=== PATIENT | female | born 1975 | race Caucasian/White ===

== ENCOUNTER → 2020-12-23 | Outpatient (CLI) | payer MEDICARE, OTHER ==
[~2020-12-23] MED LIST: AMLODIPINE BES2.5 MG PO; DITROPAN 5 MG TA5 MG PO; DOCUSATE SODIU250 MG PO; ENBREL50 MG/1 M1 SQ; ENBREL50 MG/1 ML INJ; FOLIC ACID 1 MG1 MG PO; FOLIC ACID1 MG PO; HYDROCODON-ACE1 EAC2 PO; HYDROCODON-ACE1 EAC4 PO; IBU800 MG PO; METHOTREXATE T2.5 MG PO; NORVASC2.5 MG PO; PREDNISONE10 MG PO; PROTONIX 40 MG40 M1 PO; PROTONIX40 MG PO; TRAMADOL HCL50 MG PO; ULTRAM50 MG PO; VENTOLIN HFA 66.7 GM INH; ZOFRAN4 MG PO
== END ==
LOC: EMI 13:00
DX: M25.762 Osteophyte, left knee (principal); M25.562 Pain in left knee; S83.242A Other tear of medial meniscus, current injury, left knee, initial encounter
CPT/HCPCS: 73721

== ENCOUNTER → 2021-03-05 | Day surgery (SDC) | payer MEDICARE, OTHER ==
[~2021-03-05] VITALS: Ht 157.5 cm; Wt 93.0 kg
[2021-03-05 06:47] LABS: HEMOGLOBIN 13.2 gm/dl (12.3-15.3); RED BLOOD COUNT 4.36 M/UL (4.00-5.10); WHITE BLOOD COUNT 13.3 K/UL (4.5-11.0)
[2021-03-05 07:03] LABS: BUN/CREATININE RATIO 15 (0-10)
== END | disposition home or self-care (01) ==
LOC: OR 06:06
PROVIDERS: Orthopaedic Surgery
DX: S83.242A Other tear of medial meniscus, current injury, left knee, initial encounter (principal); J45.909 Unspecified asthma, uncomplicated; M32.9 Systemic lupus erythematosus, unspecified; L40.50 Arthropathic psoriasis, unspecified; M06.9 Rheumatoid arthritis, unspecified; F32.9 Major depressive disorder, single episode, unspecified; Z79.899 Other long term (current) drug therapy
CPT/HCPCS: 36415; 80048; 85025; J0171; J0690; J1100; J1170; J1885; J2001; J2250; J2405; J2704; J2765; J3010; J7120